=== PATIENT | male | born 1925 | race Caucasian/White ===

== ENCOUNTER 2016-09-10 08:23 | Day surgery (SDC) | payer MEDICARE ==
[~2016-09-10] VITALS: Ht 182.9 cm; Wt 87.9 kg
[~2016-09-10 08:23] MED LIST: CHOL200047 PO; ISOS60TA2 PO; LIP40 PO; LISI-571 PO; METO25TA99 PO; MULT-1018 PO; MULT-1073 PO; NITR0.4T SL; OMEP20TA86 PO; TAMS0.4C98 PO; sleep aid
[2016-09-10] MEDS ORDERED: Propofol 10,000 mCg/mL 20 mL Inj ONE (08:24)
[2016-09-10] MEDS: Lactated Ringer's 1,000 ML IV SCH ×2 (08:38→10:08)
[2016-09-10 09:00] VITALS: BP 110/64; PULSE 57; RESP 16; O2SAT 96
[2016-09-10] MEDS ORDERED: Lactated Ringer's 1,000 ML IV SCH (09:51)
[2016-09-10] MEDS ORDERED: Lactated Ringer's 500 ML IV PRN (09:51)
--- NOTE | 2016-09-10 09:51 | PCM.HPANE ---
Patient Data Surgeon Admitting Provider: Attending Provider:Angel Larson MD Primary Care Physician:Reyna Diaz MD Other Provider:[place] Anesthesia Reason for Visit Open Comedones Ht/WT & BMI Height (Feet): 6 Height (Inches): 0 Weight (Kilograms): 87.9 Body Mass Index 26.00 Allergies Coded Allergies: No Known Allergies (Verified , 09/05/14) Past Anesthesia History Anesthesia History: Denies:: Anesthesia Reactions, Fam Anesthesia Reaction Diabetes History Hx Diabetes?: No MRSA MRSA: No Medications Hypertension Medication: Yes Home Meds Incl Beta Brittnee: Yes (METOPROLOL) Date Beta Brittnee Taken: Sep 10, 2016 Time Beta Brittnee Taken: 744 Reported Medications Cholecalciferol (Vitamin D3) (Vitamin D3)2,000 Unit Capsule2,000 Unit PO DAILY 09/08/16 [sleep aid] No Conflict CheckUnknown Dose PRN Insomnia 09/08/16 Omeprazole 20 Mg Tablet.dr25 Mg PO DAILY 09/08/16 Nitroglycerin SL (Nitrostat)0.4 Mg Tab.subl0.4 Mg SL Q5MIN PRN For Chest Pain # 1 BOTTLE 09/08/16 Multivitamin (Multi Vitamin Daily)1 Each Tablet1 Each PO DAILY 30 Days Ref 0 09/08/16 Metoprolol Succinate ER 25 Mg Tab.er.24h25 Mg PO DAILY Ref 0 09/08/16 Lisinopril 5 Mg Tablet5 Mg PO DAILY #30 TABLET Ref 0 09/08/16 Isosorbide MN ER 60 Mg Tab.er.24h90 Mg PO DAILY 09/08/16 Tamsulosin (Flomax)0.4 Mg Capsule0.4 Mg PO DAILY Ref 0 09/08/16 Multivits-Min/FA/Lycopene/Lut (Centrum Silver Tablet)1 Each Tablet1 Each PO DAILY 09/08/16 Atorvastatin (Lipitor)40 Mg Ysmhro28 Mg PO DAILY Ref 0 09/08/16 Discontinued Reported Medications Psyllium Seed (with Sugar) (Metamucil Packet)1 Each Packet1 Each PO HS 09/05/14 Nitroglycerin SL (Nitrostat)0.4 Mg Tab.subl0.4 Mg SL Q5MIN PRN For Chest Pain # 1 BOTTLE 09/05/14 Econazole Nitrate 15 Gm Cream..g.1 Appl TOP two times weekly #1 TUBE 09/05/14 Atorvastatin Calcium 40 Mg Ffjtvn63 Mg PO DAILY #30 TABLET Ref 0 09/05/14 Metoprolol Succinate ER 25 Mg Tab.er.24h25 Mg PO DAILY 30 Days Ref 0 09/05/14 Tamsulosin ER 0.4 Mg Cap.er.24h0.4 Mg PO DAILY 30 Days Ref 0 09/05/14 Omeprazole Magnesium (Omeprazole)20 Mg Capsule.dr20 Mg PO AM 30 Days Ref 0 09/05/14 Isosorbide MN ER 30 Mg Tab.er.24h30 Mg PO DAILY 09/05/14 Lisinopril 5 Mg Tablet5 Mg PO DAILY #30 TABLET Ref 0 09/05/14 History History of ENT Problems?: Yes HEENT History: Positive for:: Cataracts (bilateral ) Hearing Problem Denies:: Dysphagia Sinus Problem Denture Type: Partial- Lower Hx of Heart Problems?: Yes Cardiovascular History: Positive for:: Cardiac Surgery (Stents placed over 15 yrs ago.) Chest Pain Hypertension Irregular Heartbeat Denies:: Congestive Heart Failure Edema Heart Murmur Pacemaker Thrombophlebitis Hx of Respiratory Problem?: Yes Respiratory History: Positive for:: Chest Surgery (Stents placed 15 years ago. ) Denies:: Asthma COPD Dyspnea Emphysema Hemoptysis Oxygen Administration Pneumonia Tuberculosis Use of C-PAP Machine Hx Neurologic Problems?: No Neurological History: Positive for:: Dizziness Denies:: Alzheimer's Disease CVA Dementia Headaches Parkinson's Disease Seizures Hx of GI Problems?: Yes Gastrointestinal History: Positive for:: Diverticulitis Gastroesphageal Reflux Heartburn Denies:: Gastrointestinal Bleeding Hepatitis Hiatal Hernia Rectal Bleeding Other GI Pertinent History: perianal comedones current admission problem Hx of Problems?: No Genitourinary History: Denies:: HX of Hemodialysis Kidney Stones Urinary Tract Infection HX of Peritoneal Dialysis: No Male Hx: Denies:: Prostate Problems Scrotal Mass Testicular Surgery Skin History: Denies:: History Skin Disorders? Pressure Ulcers Hx Musculoskeletal Problems?: Yes Musculoskeletal History: Positive for:: Back Injury (back surgery for pinched nerve, about 25 yrs ago.) Denies:: Joint Replacement Musculoskeletal Trauma Hx of Psycho/Social Problems?: No Psycho Social History: Denies:: Anxiety Bipolar Disorder Hx Depression Suicide Attempt Hx Surgeries?: Yes (back surgery) Hx Any Other Health Problems?: Yes Other History: Positive for:: Hospitalization ([id number] [facility] for diverticulitis) Denies:: Cancer Endocrine Disease Thyroid Disease History Blood Transfusions: Denies:: Blood Transfuse Reaction Blood Transfusions Hx Diabetes: No Hx Alcohol Use: YesAlcoholic Drinks Per Day: rareHx Substance Use: No Smoking Status: Former Smoker Have You Smoked inLast 12 mo: No Stop/Bang Treated for Sleep Apnea?: No Do You Have a CPAP Machine?: No P-Blood Pressure: treated: Yes B- Body Mass Index > 35 kg/m2: No A- Age over 50: Yes N- Neck Large Circumference: No G- Gender Male: Yes DEYSI Risk Assessment: Low Risk, <3 Yes Risk Assessment Category Category 1A: Patient has history of documented sleep apnea, and HAS NOT received any narcotic, sedative or anesthesia administration during this stay. Category 1B: Patient has history of documented sleep apnea, and HAS received any narcotic , sedative or anesthesia administration during this stay Category 2: Patient has SUSPECTED Obstructive Sleep Apnea, and HAS received any narcotic , sedative or anesthesia administration during this stay. Category 3: Patient has SUSPECTED Obstructive Sleep Apnea and HAS NOT received narcotic, sedative or anesthesia administration during this stay. Category 4: Outpatient in Procedural Areas with known sleep apnea or who screen positive for High Risk via the STOP/BANG questionnaire. Exam Exam Vital Signs Vital Signs Date Time Temp Pulse Resp B/P Pulse Ox O2 Delivery O2 Flow Rate FiO2 09/10/16 09:00 36 57 16 110/64 96 Room Air General Appearance: Oriented X3 HEENT/AIRWAY: MP 2 Lungs: Normal Air Movement Heart: Regular Rate/Rhythm Meds/Labs/Diagnostics Admission Meds Current Medications Lactated Ringer's (Lr) 1,000 ml @ 120 mls/hr Q8H20M IV Last administered on t 08:38; Start 09/10/16 at 05:00; Stop 09/10/16 at 13:19 Plan Impression Patient chart reviewed, patient interviewed and anesthestic plan with risks, benefits, and alternatives discussed, and informed consent obtained. NPO Status: 09/10/16 SIP WITH PILLS ASA Physical Status: ASA3 Severe Disease Anesthetic Plan: MAC Bene/Risks/Altern/Consents: Yes HP Complete Prior to Induction: Yes Helder Pennington MD Sep 10, 2016 09:50
[2016-09-10] MEDS ORDERED: MetoCLOpramide 5 mg/mL 2 mL Inj IVPUSH PRN (09:55)
[2016-09-10] MEDS ORDERED: HYDROmorphone 1 mg/mL Inj IVPUSH PRN (09:55)
[2016-09-10] MEDS ORDERED: Phenylephrine 10,000 mCg/mL Inj IVPUSH PRN (09:55)
[2016-09-10] MEDS ORDERED: Dexamethasone 4 mg/mL Inj IVPUSH PRN (09:55)
[2016-09-10] MEDS ORDERED: Ondansetron 2 mg/mL 2 mL Inj IVPUSH PRN (09:55)
[2016-09-10] MEDS ORDERED: EPHEDrine Sulfate 50 mg/mL Inj IVPUSH PRN (09:55)
[2016-09-10] MEDS ORDERED: fentaNYL-PF 50 mCg/mL 2 mL Inj IVPUSH PRN (09:55)
[2016-09-10] MEDS ORDERED: Lidocaine PF 1% 30 mL Inj INFILTRATE ONE (10:20)
[2016-09-10 10:36] VITALS: BP 102/77; PULSE 56; RESP 18; O2SAT 97
--- NOTE | 2016-09-10 10:40 | OP ---
[address] [address] OPERATIVE REPORT PATIENT: CAROLINE URRUTIA : 1925 MR#: [id number] ADMIT: 09/10/2016 JOB ID: [id number] DATE OF SURGERY: 09/10/2016 ANESTHESIA: MAC. PREOPERATIVE DIAGNOSIS(ES): Open and closed comedones in the perianal area. POSTOPERATIVE DIAGNOSIS(ES): Open and closed comedones in the perianal area. PROCEDURES: Excision debridement of open and closed comedones perianal area. SURGEON: Dr. Angel Larson. INSPECTOR SEMICONDUCTOR WAFER: ADILSON Awan. COMPLICATIONS: None. ESTIMATED BLOOD LOSS: Minimal. CONDITION: Satisfactory. SPECIMEN: None. FINDINGS: There are about seven or eight comedones both open and closed. These were cleaned out. INDICATION/SIGNIFICANT HISTORY: The patient is an 89-year-old man who was referred to me for complaint of perianal lumps that were causing difficulty with hygiene. In the clinic I diagnosed him with mostly open comedones that were extraordinarily large. I attempted to clean it up in the clinic but he could not tolerate it. We, therefore, elected to do this in the operating room. OPERATIVE TECHNIQUE: The patient was taken to the operating room and placed in a supine position. Light sedation was administered and he was placed in the lithotomy. The perineum was prepped and draped and a procedural pause was performed. I began with the open comedones. These were essentially easily cleaned out with manual compression. There is one large closed comedone which I anesthetized using 1% lidocaine. This was incised and then drained. After they were adequately cleaned up, the case was concluded.
[2016-09-10 11:24] VITALS: BP 118/74; PULSE 57; RESP 18; O2SAT 98
--- NOTE | 2016-09-10 11:35 | PCM.ANEP1 ---
Post Anesthesia Phase 1 PACU Phase 1 Assessment Vital Signs Vital Signs Date Time Temp Pulse Resp B/P Pulse Ox O2 Delivery O2 Flow Rate FiO2 09/10/16 11:24 57 18 118/74 98 Room Air 09/10/16 10:36 36.2 56 18 102/77 97 Room Air 09/10/16 09:00 36 57 16 110/64 96 Room Air Anesthetic Administered: GA Level of Alertness: Awake, talking Pain: No Nausea or Vomiting: No Oxygen Delivery: Room Air Lungs: Normal Air Movement Helder Pennington MD Sep 10, 2016 11:35
--- NOTE | 2016-09-10 11:35 | PCM.ANEP2 ---
Post Anesthesia Evaluation ASA/CMS Post Anesthesia VS in Patient's Normal Range?: Yes Resp Stable; Airway Patent?: Yes CV Function & Hydration Stable: Yes Mental Status Recovered?: Yes Pain control Satisfactory?: Yes N/V Control Satisfactory?: Yes Helder Pennington MD Sep 10, 2016 11:35
== END 2016-09-10 23:59 | disposition home or self-care (01) ==
LOC: SAS 08:23
PROVIDERS: ATTEND General Practice
DX: L70.0 Acne vulgaris (principal); I10 Essential (primary) hypertension; R42 Dizziness and giddiness; K21.9 Gastro-esophageal reflux disease without esophagitis; R12 Heartburn; Z98.61 Coronary angioplasty status; Z87.891 Personal history of nicotine dependence; Z79.899 Other long term (current) drug therapy
CPT/HCPCS: 10040; 76942; J7120